=== PATIENT | male | born 1985 | race Caucasian/White ===

== ENCOUNTER 2016-11-23 12:18 | Emergency (ER) | payer SELFPAY ==
[~2016-11-23] VITALS: Ht 180.3 cm; Wt 84.0 kg
[~2016-11-23 12:18] MED LIST: DOXY100T PO
[2016-11-23 12:19] VITALS: BP 160/89; PULSE 94; RESP 18; TEMP 97.9; O2SAT 99
--- NOTE | 2016-11-23 12:38 | PD ---
Physical Exam Time Seen by Provider: 12:36 Narrative Pt presents to the ED for evaluation of painful cyst at base of tailbone for 2 weeks. States fell onto it and it "popped" and has had drainage from the area. Denies fever. VSS. Awaiting bed placement. Data Data Last Documented VS Vital Signs Date Time Temp Pulse Resp B/P Pulse Ox O2 Delivery O2 Flow Rate FiO2 11/23/16 12:19 97.9 94 18 160/89 99 Room Air MDM Supervised Visit with KAT: Carina Deras Nov 23, 2016 12:38
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
[2016-11-23] MEDS ORDERED: IBUPROFEN 800 MG TAB PO ONE (13:30)
[2016-11-23] MEDS ORDERED: IBUP800T23 PO (13:35)
[2016-11-23] MEDS ORDERED: CLIN1CAP5 PO (13:35)
--- NOTE | 2016-11-23 14:01 | RADRPT ---
EXAM DATE/TIME: 11/23/2016 13:58 [facility] COMPARISON: No previous studies available for comparison. INDICATIONS : Cyst on bottom of tailbone, fell 11 days ago. MEDICAL HISTORY : SURGICAL HISTORY : None. ENCOUNTER: Initial ACUITY: 1 week PAIN SCORE: 2/10 LOCATION: sacrum and coccyx FINDINGS: Two-view examination of the sacrum and coccyx demonstrates no evidence of fracture or malalignment. The sacral ala and foramina appear symmetric and intact. The coccyx appears unremarkable. The preve rtebral soft tissues are within normal limits. CONCLUSION: Normal examination for a patient of this age. Eyad Brito MD on November 23, 2016 at 13:58 Board Certified Radiologist. This report was verified electronically.
== END 2016-11-23 14:31 | disposition home or self-care (01) ==
LOC: NEPK 12:18
DX: L05.01 Pilonidal cyst with abscess (principal); S30.0XXA Contusion of lower back and pelvis, initial encounter; F17.210 Nicotine dependence, cigarettes, uncomplicated
CPT/HCPCS: 72220; 99283

== ENCOUNTER 2017-02-12 19:05 | Emergency (ER) | payer SELFPAY ==
[~2017-02-12] VITALS: Ht 180.3 cm; Wt 84.0 kg
[~2017-02-12 19:05] MED LIST changes: +CLIN1CAP5 PO; -DOXY100T PO; +IBUP800T23 PO
[2017-02-12 19:08] VITALS: BP 126/77; PULSE 97; RESP 16; TEMP 98.9; O2SAT 98
[2017-02-12] MEDS: MORPHINE SULFATE 4 MG/ML INJ IV PUSH ONE ×2 (19:30→19:51)
[2017-02-12] MEDS ORDERED: ONDANSETRON HCL 4 MG/2 ML VIAL IV PUSH ONE (19:30)
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
[2017-02-12 19:51] VITALS: BP 127/78; PULSE 86; RESP 16; O2SAT 98
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
[2017-02-12] MEDS ORDERED: IBUP800T23 PO (21:38)
[2017-02-12] MEDS ORDERED: CYCL1TAB29 PO (21:38)
== END 2017-02-12 21:59 | disposition home or self-care (01) ==
LOC: NEPC 19:05
DX: S09.90XA Unspecified injury of head, initial encounter (principal); S01.311A Laceration without foreign body of right ear, initial encounter; T14.8 Other injury of unspecified body region; F17.210 Nicotine dependence, cigarettes, uncomplicated; V19.3XXA Pedal cyclist (driver) (passenger) injured in unspecified nontraffic accident, initial encounter; Y93.55 Activity, bike riding; Y92.410 Unspecified street and highway as the place of occurrence of the external cause
CPT/HCPCS: 12013; 70450; 71020; 72125; 96374; 99285; J2405; J2270

== ENCOUNTER 2017-07-09 14:21 | Emergency (ER) | payer SELFPAY ==
[~2017-07-09] VITALS: Ht 180.3 cm; Wt 90.5 kg
[~2017-07-09 14:21] MED LIST changes: -CLIN1CAP5 PO; +CYCL10TA PO; +IBUP1TAB7 PO; -IBUP800T23 PO
[2017-07-09 14:24] VITALS: BP 170/92; PULSE 74; RESP 12; TEMP 97.6; O2SAT 99
[2017-07-09] MEDS ORDERED: SODIUM CHLOR 0.9% 1000 ML INJ 1,000 ML IV SCH (14:37)
[2017-07-09] MEDS ORDERED: SODIUM CHLOR 0.9% 1000 ML INJ 1,000 ML IV ONE (14:45)
[2017-07-09] MEDS ORDERED: PROCHLORPERAZINE INJ 10 MG/2 ML VIAL IV PUSH ONE (14:45)
[2017-07-09] MEDS ORDERED: SODIUM CHLORIDE 0.9% FLUSH 10 ML FLUSH IV FLUSH PRN (14:45)
[2017-07-09] MEDS ORDERED: diphenhydrAMINE HCL 50 MG/ML VIAL IV PUSH ONE (14:45)
[2017-07-09] MEDS ORDERED: ONDANSETRON HCL 4 MG/2 ML VIAL IV PUSH ONE (14:45)
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
[2017-07-09] MEDS ORDERED: REGL5TAB PO (15:29)
[2017-07-09 15:53] VITALS: BP 137/99; PULSE 67; RESP 18; O2SAT 100
[2017-07-09 16:19] LABS: AUTOMATED NEUTROPHIL # 15.4 TH/MM3 (1.8-7.7); BASOPHIL # 0.3 TH/MM3 (0-0.2); BASOPHIL % 1.9 % (0.0-2.0); EOSINOPHIL # 0.2 TH/MM3 (0-0.4); EOSINOPHIL % 0.9 % (0.0-4.0); HEMATOCRIT 50.1 % (39.0-51.0); HEMOGLOBIN 17.4 GM/DL (13.0-17.0); LYMPH % 5.8 % (9.0-44.0); MEAN CELL VOLUME 87.1 FL (80.0-100.0); MEAN CORPUSCULAR HEMOGLOBIN 30.2 PG (27.0-34.0); MEAN CORPUSCULAR HGB CONC 34.7 % (32.0-36.0); MONO % 1.9 % (0.0-8.0); MONOCYTE # 0.3 TH/MM3 (0-0.9); NEUT % 89.5 % (16.0-70.0); PLATELET COUNT 132 TH/MM3 (150-450); RED BLOOD COUNT 5.76 MIL/MM3 (4.50-5.90); RED CELL DISTRIBUTION WIDTH 13.2 % (11.6-17.2); WHITE BLOOD COUNT 17.2 TH/MM3 (4.0-11.0)
[2017-07-09 16:46] LABS: BANDS 7 % (0-6); LYMPHOCYTES 5 % (9-44); MONOCYTES 2 % (0-8); POLYS (SEG NEUTROPHILS) 86 % (16-70)
[2017-07-09 16:48] LABS: ALKALINE PHOSPHATASE 56 U/L (45-117); ALT (GPT) 31 U/L (12-78); TOTAL BILIRUBIN ADULT 0.5 MG/DL (0.2-1.0); TOTAL PROTEIN 8.3 GM/DL (6.4-8.2)
[2017-07-09 16:50] LABS: ALBUMIN 4.8 GM/DL (3.4-5.0); AST (GOT) 25 U/L (15-37); BICARBONATE 25.7 MEQ/L (21.0-32.0); BLOOD UREA NITROGEN 14 MG/DL (7-18); CALCIUM 9.6 MG/DL (8.5-10.1); CHLORIDE 102 MEQ/L (98-107); CREATININE 1.06 MG/DL (0.60-1.30); GLOMERULAR FILTRATION RATE 83 ML/MIN (>89); GLUCOSE,RANDOM 115 MG/DL (74-106); SODIUM (NA) 135 MEQ/L (136-145)
[2017-07-09] MEDS ORDERED: IOHEXOL 350 MG/ML 10 ML VIAL (for RAD DIAG) IVCONTRAST ONE (18:46)
--- NOTE | 2017-07-09 18:57 | RADRPT ---
EXAM DATE/TIME: 07/09/2017 18:40 [place] COMPARISON: No previous studies available for comparison. INDICATIONS : Abdominal pain and vomiting starting today. IV CONTRAST: 93 cc Omnipaque 350 (iohexol) IV ORAL CONTRAST: No oral contrast ingested. RADIATION DOSE: 8.46 CTDIvol (mGy) MEDICAL HISTORY : None SURGICAL HISTORY : Kidney repair ENCOUNTER: Initial ACUITY: 1 day PAIN SCALE: 7/10 LOCATION: abdomen TECHNIQUE: Volumetric scanning of the abdomen and pelvis was performed. Using automated exposure control and ad justment of the mA and/or kV according to patient size, radiation dose was kept as low as reasonably achievable to obtain optimal diagnostic quality images. DICOM format image data is available electro nically for review and comparison. FINDINGS: LOWER LUNGS: The visualized lower lungs are clear. LIVER: Homogeneous density without lesion. There is no dilation of the biliary tree. No calcified gallston es. SPLEEN: Normal size without lesion. PANCREAS: Within normal limits. KIDNEYS: Normal in size and shape. There is no mass, stone or hydronephrosis. ADRENAL GLANDS: Within normal limits. VASCULAR: There is no aortic aneurysm. BOWEL/MESENTERY: The stomach, small bowel, and colon demonstrate no acute abnormality. There is no free intraperitone al air or fluid. The appendix is normal. There are no signs of obstruction. ABDOMINAL WALL: Within normal limits. RETROPERITONEUM: There is no lymphadenopathy. BLADDER: No wall thickening or mass. REPRODUCTIVE: Within normal limits. INGUINAL: There is no lymphadenopathy or hernia. MUSCULOSKELETAL: There is no healed right lateral sixth rib fracture. Otherwise, no acute abnormality is seen. CONCLUSION: No acute abnormality is identified within the abdomen or pelvis to explain the clinical symptoms. Flo Up MD on July 09, 2017 at 18:52 Board Certified Radiologist. This report was verified electronically.
--- NOTE | 2017-07-09 19:09 | PD ---
Data Data Last Documented VS Vital Signs Date Time Temp Pulse Resp B/P (MAP) Pulse Ox O2 Delivery O2 Flow Rate FiO2 07/09/17 15:53 67 18 137/99 (112) 100 Room Air 07/09/17 14:24 97.6 Orders Orders Complete Blood Count With Diff (07/09/17 14:37) Comprehensive Metabolic Panel (07/09/17 14:37) Lipase (07/09/17 14:37) Iv Access Insert/Monitor (07/09/17 14:37) Ecg Monitoring (07/09/17 14:37) Oximetry (07/09/17 14:37) Sodium Chlor 0.9% 1000 Ml Inj (Ns 1000 M (07/09/17 14:37) Sodium Chloride 0.9% Flush (Ns Flush) (07/09/17 14:45) Prochlorperazine Inj (Compazine Inj) (07/09/17 14:45) Diphenhydramine Inj (Benadryl Inj) (07/09/17 14:45) Sodium Chlor 0.9% 1000 Ml Inj (Ns 1000 M (07/09/17 14:45) Ondansetron Inj (Zofran Inj) (07/09/17 14:45) Ct Abd/Pel W Iv Contrast(Rout) (07/09/17 17:25) Iohexol 350 Inj (Omnipaque 350 Inj) (07/09/17 18:46) Oral Rehydration (07/09/17 19:09) Urinalysis - C+S If Indicated (07/09/17 19:09) Ed Discharge Order (07/09/17 20:55) Labs Laboratory Tests Test 07/09/17 15:40 07/09/17 20:25 White Blood Count 17.2 TH/MM3 Red Blood Count 5.76 MIL/MM3 Hemoglobin 17.4 GM/DL Hematocrit 50.1 % Mean Corpuscular Volume 87.1 FL Mean Corpuscular Hemoglobin 30.2 PG Mean Corpuscular Hemoglobin Concent 34.7 % Red Cell Distribution Width 13.2 % Platelet Count 132 TH/MM3 Mean Platelet Volume 9.0 FL Neutrophils (%) (Auto) 89.5 % Lymphocytes (%) (Auto) 5.8 % Monocytes (%) (Auto) 1.9 % Eosinophils (%) (Auto) 0.9 % Basophils (%) (Auto) 1.9 % Neutrophils # (Auto) 15.4 TH/MM3 Lymphocytes # (Auto) 1.0 TH/MM3 Monocytes # (Auto) 0.3 TH/MM3 Eosinophils # (Auto) 0.2 TH/MM3 Basophils # (Auto) 0.3 TH/MM3 CBC Comment AUTO DIFF Differential Total Cells Counted 100 Neutrophils % (Manual) 86 % Band Neutrophils % 7 % Lymphocytes % 5 % Monocytes % 2 % Neutrophils # (Manual) 16.0 TH/MM3 Differential Comment FINAL DIFF MANUAL Platelet Estimate LOW Platelet Morphology Comment NORMAL Red Cell Morphology Comment NORMAL Blood Urea Nitrogen 14 MG/DL Creatinine 1.06 MG/DL Random Glucose 115 MG/DL Total Protein 8.3 GM/DL Albumin 4.8 GM/DL Calcium Level 9.6 MG/DL Alkaline Phosphatase 56 U/L Aspartate Amino Transf (AST/SGOT) 25 U/L Alanine Aminotransferase (ALT/SGPT) 31 U/L Total Bilirubin 0.5 MG/DL Sodium Level 135 MEQ/L Potassium Level 4.0 MEQ/L Chloride Level 102 MEQ/L Carbon Dioxide Level 25.7 MEQ/L Anion Gap 7 MEQ/L Estimat Glomerular Filtration Rate 83 ML/MIN Lipase 258 U/L Urine Color YELLOW Urine Turbidity CLEAR Urine pH 8.5 Urine Specific Reading 1.043 Urine Protein TRACE mg/dL Urine Glucose (UA) NEG mg/dL Urine Ketones 40 mg/dL Urine Occult Blood NEG Urine Nitrite NEG Urine Bilirubin NEG Urine Urobilinogen LESS THAN 2.0 MG/DL Urine Leukocyte Esterase NEG Urine RBC 1 /hpf Urine WBC LESS THAN 1 /hpf Microscopic Urinalysis Comment CULT NOT INDICATED [facility] Medical Record Reviewed: Yes Supervised Visit with KAT: No Interpretation(s) Last Impressions Abdomen/Pelvis CT 07/09/171724 Signed Impressions: Service Date/Time: Sunday, July 09, 2017 18:40 - CONCLUSION: No acute abnormality is identified within the abdomen or pelvis to explain the clinical symptoms. Flo Up MD Narrative Course During the course of the patient's emergency department visit, the patient's history, examination, and differential diagnosis were reviewed with the patient. The patient was placed on a videotape operator with oximetry and frequent blood pressure monitoring. The patient had IV access obtained and blood work sent for analysis. The patient's case was checked out to me by Dr. Murrell. Please see his complete history and physical. The patient's case was checked out to me at the conclusion of his shift. The patient was initially provided normal saline 2 L of IV fluid bolus, Zofran 4 mg IV, Benadryl 25 mg IV, Compazine 10 mg IV. The patient's laboratory studies were reviewed and remarkable for a white count of 17.2, hemoglobin 17.4, platelets 132 with 86 neutrophils, bands 7, lymphocytes 5, CMP is remarkable for sodium of 135, GFR of 83, glucose 115, total protein 8.3, lipase 250 Radiology studies were reviewed and remarkable for a CT scan of the abdomen and pelvis that shows no acute abnormality identified within the abdomen or pelvis to explain the clinical symptoms. Given the patient's elevated white blood cell count and left shift, this could be demargination from the patient's persistent vomiting throughout the day, however urinalysis will be sent to evaluate and rule out urinary tract infection. Urinalysis shows 40 ketones otherwise unremarkable. The patient was able to tolerate p.o. hydration. The patient will be discharged home with a prescription for Zofran. The patient is resting comfortably and feels better, is alert and in no distress. The patient's results and examination findings were discussed with the patient. The repeat examination is unremarkable and benign. The history, exam, diagnostic testing, and current condition do not suggest any significant pathology to warrant further testing, continued ED treatment, admission, or surgical evaluation at this point. The vital signs have been stable. The patient does not have uncontrollable pain, intractable vomiting, or other significant symptoms. The patient's condition is stable and appropriate for discharge. The patient will pursue further outpatient evaluation with a primary care physician or other designated or consulting physician as indicated in the discharge instructions. The patient expressed understanding and was agreeable with this plan. Diagnosis Primary Impression: Vomiting Qualified Codes: R11.10 - Vomiting, unspecified Referrals: Primary Care Physician 2 days Patient Instructions: Acute Nausea and Vomiting (ED), General Instructions Med/Other Pt SpecificInfo: Prescription(s) given Scripts Ondansetron Odt (Zofran Odt) 4 Mg Tab 4 MG SL Q6HR Y for Nausea/Vomiting, #7 TAB 0 Refills Prov: Minerva Neville MD 07/09/17 Disposition: 01 DISCHARGE HOME Condition: Stable Minerva Neville MD Jul 09, 2017 19:09
[2017-07-09 20:42] LABS: BILIRUBIN, URINE NEG (NEG); BLOOD, URINE NEG (NEG); GLUCOSE,URINE NEG (NEG); KETONE, URINE 40 mg/dL (NEG); NITRITE,URINE NEG (NEG); PH, URINE 8.5 (5.0-8.5); URINE COLOR YELLOW (YELLW/STRAW); URINE LEUKOCYTE ESTERASE NEG (NEG)
[2017-07-09] MEDS ORDERED: ZOFR4TAB3 SL (20:59)
== END 2017-07-09 21:25 | disposition home or self-care (01) ==
LOC: NEPC 14:21
DX: R11.2 Nausea with vomiting, unspecified (principal)
CPT/HCPCS: 74177; 80053; 81001; 83690; 85007; 85027; 96361; 96374; 96375; 99284; J0780; J1200; J2405; J7030; Q9967